=== PATIENT | female | born 1975 | race Two or more races ===

== ENCOUNTER → 2016-04-26 | Outpatient (CLI) | payer OTHER ==
[~2016-04-26] MED LIST: /VITACHEW PO; ANUS2.5C2 PR; ATIV1TAB7 SL; ATIVAN PO; COLA100C PO; FLIN1CHW3 PO; IBUP200C PO; LABEPOW7 XX; MILKSUS PO; MVI PO; TYLE167L PO
--- NOTE | 2016-04-26 14:15 | REP ---
RIGHT ANKLE SERIES: Four views of the right ankle are performed. I see no evidence of acute fracture or dislocation. There appears to be a bone island in the central aspect of the calcaneus. The ankle mortise is anatomic. There is moderate lateral soft tissue swelling. IMPRESSION: Moderate soft tissue swelling. No evidence of acute fracture or dislocation. Signed by Dileep Mishra MD 04/26/2016 04:42 P
== END | disposition home or self-care (01) ==
LOC: M LRY 12:07
PROVIDERS: ATTEND Physician Assistant
DX: M25.571 Pain in right ankle and joints of right foot (principal); M25.471 Effusion, right ankle
CPT/HCPCS: 73610; G0463

== ENCOUNTER → 2018-10-31 | Outpatient (REF) | payer OTHER ==
[~2018-10-31] MED LIST changes: -/VITACHEW PO; -COLA100C PO; +COLA100C5 PO; -IBUP200C PO; +IBUP200C25 PO; +MILK120011 PO; -MILKSUS PO
[2018-10-31 17:52] LABS: PERCENT SATURATION 3.6 % (13.2-45.0)
== END ==
LOC: M LAB REF 16:12
PROVIDERS: ATTEND Nurse Practitioner Adult Health
DX: D50.9 Iron deficiency anemia, unspecified (principal)

== ENCOUNTER 2018-11-23 08:45 | Outpatient (CLI) | payer OTHER ==
[~2018-11-23] VITALS: Ht 175.3 cm; Wt 83.3 kg
[2018-11-23 08:50] VITALS: BP 135/85
[2018-11-23] MEDS ORDERED: IRON SUCROSE 25 MG in NS 50 ML IV ONE (09:30)
[2018-11-23 09:55] VITALS: BP 148/70
[2018-11-23] MEDS ORDERED: IRON SUCROSE 475 MG in NS 250 ML IV ONE (10:15)
[2018-11-23 10:45] VITALS: BP 137/68
[2018-11-23 12:00] VITALS: BP 155/86
[2018-11-23 13:00] VITALS: BP 144/73
[2018-11-23 14:15] VITALS: BP 148/78
== END 2018-11-23 14:15 | disposition home or self-care (01) ==
LOC: M INFU 08:45
PROVIDERS: ATTEND Nurse Practitioner Adult Health
DX: D50.9 Iron deficiency anemia, unspecified (principal)
CPT/HCPCS: 96365; 96366; J1756

== ENCOUNTER → 2018-12-21 | Outpatient (REF) | payer OTHER | LOC: M LAB REF 12:26 | PROVIDERS: ATTEND Internal Medicine | DX: D50.9 Iron deficiency anemia, unspecified (principal) ==